=== PATIENT | male | born 1945 | race Asian ===

== ENCOUNTER 2021-12-07 23:02 | Emergency (ER) | payer OTHER ==
[~2021-12-07] VITALS: Ht 165.1 cm; Wt 64.4 kg
[2021-12-07 23:05] VITALS: BP 135/85; TEMP 98.7
[2021-12-08 00:14] LABS: POTASSIUM 3.8 mmol/L (3.6-5.2)
[2021-12-08 01:16] LABS: PLATELET COUNT 175 K/uL (142-355)
[2021-12-08] MEDS ORDERED: ALPR0.2566 PO (08:34)
[2021-12-08] MEDS ORDERED: D325 MCG PO (08:35)
[2021-12-08] MEDS ORDERED: CLON0.5T36 PO (08:35)
[2021-12-08] MEDS ORDERED: MELATONIN5 M1 SL (08:37)
[2021-12-08] MEDS ORDERED: OMEP40CA PO (08:37)
[2021-12-08] MEDS ORDERED: QUETIAPINE25 MG PO (08:44)
[2021-12-08] MEDS ORDERED: REGULOID PO (08:49)
[2021-12-08] MEDS ORDERED: ROSUVASTATIN CA40 MG PO (08:50)
[2021-12-08] MEDS ORDERED: CHLO25TA12 PO (08:51)
== END 2021-12-08 03:30 | disposition still patient (30) ==
LOC: ED 23:02
PROVIDERS: Emergency Medicine
DX: F03.91 Unspecified dementia, unspecified severity, with behavioral disturbance (principal); Z11.52 Encounter for screening for COVID-19; Z04.6 Encounter for general psychiatric examination, requested by authority; R07.89 Other chest pain
CPT/HCPCS: 36415; 80053; 84484; 85027; 85610; 85730; 87635; 93005; 96372; 99283; J2270; J2405; U0003

== ENCOUNTER 2022-04-28 17:57 | Emergency (ER) | payer OTHER ==
[~2022-04-28] VITALS: Ht 175.3 cm; Wt 72.3 kg
[2022-04-28 17:57] VITALS: BP 141/86; TEMP 97
[~2022-04-28 17:57] MED LIST: ACET-206 PO; ALPR0.2566 PO; BLOOMIS59 PO; CHLO25TA12 PO; CHLO50TA22 PO; CLON0.5T36 PO; D325 MCG PO; MAGNSUS68 PO; MELATONIN5 M1 SL; METAMUCIL0.36 GM PO; OMEP40CA PO; PANTOPRAZOLE 40MG TA PO; QUET25TA2 PO; QUETIAPINE25 MG PO; REGULOID PO; ROSUVASTATIN CA40 MG PO
[2022-04-28 18:48] LABS: PLATELET COUNT 174 K/uL (142-355)
[2022-04-28 18:59] LABS: POTASSIUM 4.2 mmol/L (3.6-5.2)
[2022-04-29] MEDS ORDERED: AMOX500C85 PO (08:00)
[2022-04-29] MEDS ORDERED: CHLORHEX GLU0.12 % PO (08:02)
[2022-04-29] MEDS ORDERED: DONEPEZIL HYDRO10 M1 PO (08:03)
[2022-04-29] MEDS ORDERED: MEMA5TAB2 PO (08:04)
[2022-04-29] MEDS ORDERED: QUET25TA2 PO (08:05)
[2022-04-29] MEDS ORDERED: QUETIAPINE50 MG PO (08:06)
[2022-04-29] MEDS ORDERED: VITAMIN D1000 UNI1 PO (08:11)
[2022-04-29] MEDS ORDERED: CLON0.5T36 PO (08:14)
== END 2022-04-28 19:55 | disposition still patient (30) ==
LOC: ED 17:57
PROVIDERS: Emergency Medicine
DX: F03.911 Unspecified dementia, unspecified severity, with agitation (principal); Z11.52 Encounter for screening for COVID-19; Z04.6 Encounter for general psychiatric examination, requested by authority
CPT/HCPCS: 36415; 80053; 85027; 87635; 93005; 99284; U0003